=== PATIENT | male | born 1930 | race Caucasian/White ===

== ENCOUNTER 2016-10-21 08:22 | Inpatient (IN) | payer OTHER ==
[~2016-10-21] VITALS: Ht 180.3 cm; Wt 103.0 kg
[~2016-10-21 08:22] MED LIST: ASPIR 8181 M1 PO; ASPIRIN81 M1 PO; ASTAXANTHIN4 MG PO; CALCIUM 500 MG1 EACH PO; CALCIUM 600 +1 EAC8 PO; COZAAR50 MG PO; FOLIC ACID1 MG PO; GLIPIZIDE10 MG PO; GLUCOPHAGE500 MG PO; GLUCOTROL XL10 MG PO; HYDROCHLOROTH12.5 M3 PO; HYDROCODON-ACE1 EAC7 PO; LEVEMIR FL100 UNIT/1 SC; LEVEMIR FL100 UNITS/ SC; LISINOPRIL5 MG PO; METHOTREXATE2.5 MG PO; MICROZIDE12.5 M1 PO; NOVOLOG PE100 UNITS/ SC; OMEPRAZOLE40 M1 PO; PREDNISONE5 MG PO; ROBAXIN500 MG PO; SIMVASTATIN40 MG PO; SIMVASTATIN80 MG PO; SYNTHROID50 MCG PO; TIROSINT75 MCG PO; TYLENOL EXTRA500 MG PO; VITAMIN B-12250 MCG PO; ZESTRIL,PRINIVIL5 MG PO; ZOCOR80 MG PO
[2016-10-21 08:58] LABS: EOSINOPHIL (%) 2.4 % (0-5); EOSINOPHIL COUNT 0.3 K/uL (0-0.3); HEMATOCRIT 47.7 % (38.0-50.0); IMMATURE GRANULOCYTE (%) 0.7 % (0.0-0.7); IMMATURE GRANULOCYTE COUNT 0.7 K/uL; LYMPHOCYTE COUNT 1.1 K/uL (1.0-2.8); MCH 30.7 PG (29.0-34.0); MCHC 35.4 G/DL (30.0-36.0); MCV 86.6 FL (86-99); MONOCYTE (%) 5.9 % (3-12); MONOCYTE COUNT 0.6 K/uL (0-0.8); NEUTROPHIL (%) 79.9 % (45-76); NEUTROPHIL COUNT 8.3 K/uL (1.8-6.4); PLATELET COUNT 187 K/uL (156-360); RBC DIS.WIDTH-SD 46.7 % (39-53); RED BLOOD COUNT 5.51 M/uL (4.00-5.50); WHITE BLOOD COUNT 10.3 K/uL (4.1-10.2)
[2016-10-21] MEDS ORDERED: TRAMADOL HCL50 MG PO (09:06)
[2016-10-21] MEDS ORDERED: FINASTERIDE5 MG PO (09:06)
[2016-10-21 09:07] LABS: INTER. NORMALIZED RATIO 1.1; PROTHROMBIN TIME 10.7 (9.2-11.2); PTT 25.9 (25-32)
[2016-10-21 09:08] LABS: CHLORIDE 102 mEq/L (99-109); POTASSIUM 4.2 mEq/L (3.7-5.4); SODIUM 137 mEq/L (136-147)
[2016-10-21 09:10] LABS: GLUCOSE 232 mg/dL (70-99)
[2016-10-21 09:12] LABS: ANION GAP 12 MEQ/L (2-14)
[2016-10-21 09:14] LABS: GFR ESTIMATE (CALCULATED) > 59 mL/min/
[2016-10-21 09:15] LABS: UREA NITROGEN (BUN) 16 mg/dL (9-23)
[2016-10-21 09:22] LABS: TROP-I INTERPRETATION POSITIVE
[2016-10-21 09:24] LABS: TROPONIN-I 2.24 ng/mL (0.0-0.30)
[2016-10-21] MEDS ORDERED: LEVEMIR FL100 UNIT/1 SC (09:58)
[2016-10-21] MEDS ORDERED: LEVOTHYROXINE88 MCG PO (10:01)
[2016-10-21] MEDS ORDERED: PERCOCET 5/31 TABLET PO (10:04)
[2016-10-21 12:14] LABS: HDL CHOLESTEROL 29 MG/DL (Desirable>=40); LDL CHOLESTEROL 69 mg/dL (Desirable<100); NON-HDL CHOLESTEROL 133 mg/dL (Desirable<160); TOTAL CHOLESTEROL 162 mg/dL (Desirable<200); TRIGLYCERIDES 319 MG/DL (Normal: <150)
[2016-10-21 12:23] LABS: TROP-I INTERPRETATION POSITIVE; TROPONIN-I 3.02 ng/mL (0.0-0.30)
[2016-10-21 12:38] LABS: POINT-OF-CARE METER ID UU14100415
[2016-10-21 13:31] LABS: Estimated Average Glucose 154 mg/dL (70-123)
[2016-10-21 13:59] LABS: POINT-OF-CARE METER ID UU14100415; POINT-OF-CARE USER ID PUTMLD10
[2016-10-21 18:43] LABS: POINT-OF-CARE METER ID UU13113819
[2016-10-21 20:16] VITALS: BP 136/79
[2016-10-21 23:28] LABS: TROP-I INTERPRETATION POSITIVE; TROPONIN-I 13.73 ng/mL (0.0-0.30)
[2016-10-22 00:50] VITALS: BP 128/58
[2016-10-22 03:28] VITALS: BP 139/75
[2016-10-22 07:02] LABS: HEMATOCRIT 46.4 % (38.0-50.0); MCH 29.8 PG (29.0-34.0); MCHC 33.4 G/DL (30.0-36.0); MCV 89.2 FL (86-99); MEAN PLAT.VOLUME 9.9 uM^3 (9.0-12.4); PLATELET COUNT 158 K/uL (156-360); RBC DIS.WIDTH-CV 15.3 % (11.8-14.6); RBC DIS.WIDTH-SD 48.4 % (39-53); WHITE BLOOD COUNT 8.8 K/uL (4.1-10.2)
[2016-10-22 07:22] LABS: ALKALINE PHOSPHATASE 55 IU/L (3-129); ANION GAP 7 MEQ/L (2-14); CHLORIDE 103 MEQ/L (99-109); GFR ESTIMATE (CALCULATED) > 59 mL/min/; GLUCOSE 154 mg/dL (70-99); POTASSIUM 4.2 MEQ/L (3.7-5.4); SAMPLE HEMOLYSIS CHECK 0; SAMPLE ICTERIC CHECK 0; SAMPLE LIPEMIA CHECK 0; SODIUM 141 MEQ/L (136-147); TOTAL BILIRUBIN 1.6 MG/DL (0.0-1.0); UREA NITROGEN (BUN) 12 mg/dL (9-23)
[2016-10-22 08:04] LABS: POINT-OF-CARE METER ID UU13113781
[2016-10-22 08:28] VITALS: BP 143/67
[2016-10-22] MEDS ORDERED: ATORVASTATIN CA80 MG PO (08:29)
[2016-10-22] MEDS ORDERED: BRILINTA90 MG PO (08:29)
[2016-10-22] MEDS ORDERED: ASPIR-LOW81 MG PO (08:30)
[2016-10-22] MEDS ORDERED: LOSARTAN POTASS25 MG PO (08:30)
[2016-10-22] MEDS ORDERED: LOPRESSOR25 MG PO (08:30)
[2016-10-22 12:09] VITALS: BP 125/60
== END 2016-10-22 15:40 | disposition home or self-care (01) | DRG 247 ==
LOC: EME 08:22 → EDOF 10:54 → 4EAST 10:54 → EDOF 11:57 → 4EAST 20:09
PROVIDERS: Emergency Medicine; Internal Medicine
DX: I21.4 Non-ST elevation (NSTEMI) myocardial infarction (principal); C91.10 Chronic lymphocytic leukemia of B-cell type not having achieved remission; I10 Essential (primary) hypertension; E11.9 Type 2 diabetes mellitus without complications; K21.9 Gastro-esophageal reflux disease without esophagitis; E21.3 Hyperparathyroidism, unspecified; Z79.4 Long term (current) use of insulin; M19.90 Unspecified osteoarthritis, unspecified site; Z96.659 Presence of unspecified artificial knee joint
CPT/HCPCS: 71010; 80048; 80053; 80061; 82948; 83036; 84443; 84484; 85025; 85027; 85610; 85730; 93005; 93306; 99281; 99285; C1725; C1760; C1769; C1874; C1887; C1894; J0153; J1644; J1815; J2250; J3010; J3246; J7030